=== PATIENT | male | born 1965 | race Caucasian/White ===

== ENCOUNTER 2021-01-25 12:37 | Outpatient (CLI) | payer OTHER | END 2021-01-25 23:59 | disposition home or self-care (01) | LOC: RAD 12:37 | PROVIDERS: ATTEND Student in an Organized Health Care Education/Training Program | DX: R13.12 Dysphagia, oropharyngeal phase (principal); R47.1 Dysarthria and anarthria; Z85.89 Personal history of malignant neoplasm of other organs and systems | CPT/HCPCS: 74230 ==